=== PATIENT | female | born 1965 | race African-American/Black ===

== ENCOUNTER → 2024-01-05 | Day surgery (SDC) | payer BC, OTHER ==
[~2024-01-05] MED LIST: ACETAMINOPHEN 1000 MG/100 ML IV ONE; B COMPLEX1 EACH; BUPIVACAINE HCL 0.5% INJ 30 ML VIAL INJ ONE; CALCIUM; FAMOTIDINE 20 MG/2 ML VIAL IV ONE; FENTANYL CITRATE/PF 100MCG/2 ML INJ ONE; GABAPENTIN300 MG/6 M; HYDROCORTISONE SOD SUCCINATE 100 MG VIAL ONE; LEVOTHYROXINE112 MCG PO; LIDOCAINE HCL 2% LOCAL INJ 5 ML SDV VIAL INJ ONE; MIDAZOLAM HCL 2 MG/2 ML VIAL ONE; MULTI-VITAMIN1 EACH PO; NEOSTIGMINE 1 MG/ML 10ML VIAL ONE; ONDANSETRON HCL INJ 2MG/ML 2ML 2 MG/ML VIAL ONE; PHENYLEPHRINE HCL 1% 10 MG/ML VIAL ONE; PROPOFOL IV EMULSION 10 MG/ML 20 ML VIAL ONE; SEVOFLURANE INHAL SOLN 250 ML PEN BTL ONE; VITAMIN D; ZETIA10 MG PO
[2024-01-05] MEDS: LACTATED RINGER'S 1,000 ML ONE (12:34)
[2024-01-05 15:50] VITALS: BP 121/74; PULSE 63; RESP 16; O2SAT 98
== END | disposition home or self-care (01) ==
LOC: OR 10:39
PROVIDERS: ATTEND Podiatrist Foot & Ankle Surgery
DX: S96.811A Strain of other specified muscles and tendons at ankle and foot level, right foot, initial encounter (principal); M72.2 Plantar fascial fibromatosis; M77.31 Calcaneal spur, right foot; M76.71 Peroneal tendinitis, right leg; E78.5 Hyperlipidemia, unspecified; E03.9 Hypothyroidism, unspecified; X58.XXXA Exposure to other specified factors, initial encounter; Z01.810 Encounter for preprocedural cardiovascular examination; Z79.899 Other long term (current) drug therapy
CPT/HCPCS: 28202; 28899; 29893; 93005; J0131; J0690; J1720; J2003; J2250; J2371; J2405; J2704; J2710; J3010; J7121; Q4150; 76000